=== PATIENT | female | born 1955 | race Caucasian/White ===

== ENCOUNTER → 2023-04-20 11:28 | Outpatient (CLI) | payer OTHER, SELFPAY ==
--- NOTE | 2023-04-20 11:34 | DI.CT.S_ITS ---
PROCEDURE: CT LUMBAR SPINE WO CON INDICATIONS: LUMBAR STENOSIS TECHNIQUE: Noncontrast 3 mm thick sections acquired from the T12 level to the sacrum. Sagittal and coronal reformats were constructed. For radiation dose reduction, the following was used: automated exposure control. COMPARISON: [facility] Outside Film, MR, MR LUMBAR SPINE WITHOUT CONTRAST, 02/09/2023, 16:06. FINDINGS: Image quality: Excellent. Bones: There is normal bony alignment. No acute vertebral body compression fractures. No suspicious lytic or blastic bony lesions. No pars defects. There is minimal anterolisthesis of L4 on L5. Diffuse intervertebral disc space loss with vacuum disc phenomenon. Multiple levels of spinal canal and neural foraminal stenosis not significantly changed from recent MRI dated 02/09/2023. This levels detailed below. L1-L2: There is disc bulging and facet arthropathy with central disc protrusion resulting in at least mild spinal canal stenosis. There is at least mild bilateral neural foraminal stenosis. L2-L3: There is diffuse disc bulging along with facet arthropathy and ligamentum flavum hypertrophy resulting in at least moderate spinal canal stenosis as well as moderate bilateral neural foraminal stenosis. L3-L4: There is disc bulging along with facet arthropathy and ligamentum flavum hypertrophy resulting in at least mild spinal canal stenosis. There is at least moderate bilateral neural foraminal stenosis. L4-L5: Anterolisthesis along with disc bulging and facet arthropathy along with ligamentum flavum hypertrophy results in at least moderate spinal canal stenosis and bilateral severe neural foraminal stenosis. L5-S1: Disc bulging and facet arthropathy results in no significant spinal canal stenosis. Mild bilateral neural foraminal stenosis. Soft tissues: No retroperitoneal masses or hematomas. Visualized aorta is normal in caliber. Diffuse vascular calcifications. Moderate stool burden. Left adrenal gland nodule measuring 1.3 centimeters with Hounsfield units measuring -2 most consistent with an adrenal adenoma. IMPRESSION: Multi lumbar lumbar spondylopathy as above with multiple levels of spinal canal and neural foraminal stenosis as detailed. Left adrenal adenoma measuring 1.3 centimeters. Diffuse vascular calcifications. Dictated by: He Juarez D.O. on 04/20/2023 at 17:26 Approved by: He Juarez D.O. on 04/20/2023 at 17:33
== END ==
PROVIDERS: Referring Provider Orthopaedic Surgery Orthopaedic Surgery of the Spine; Visit Provider Orthopaedic Surgery Orthopaedic Surgery of the Spine
DX: M48.062 Spinal stenosis, lumbar region with neurogenic claudication (principal); D35.02 Benign neoplasm of left adrenal gland; M48.8X6 Other specified spondylopathies, lumbar region
CPT/HCPCS: 72131

== ENCOUNTER 2023-06-10 06:25 | Inpatient (IN) | payer OTHER, SELFPAY ==
[2023-06-05 12:49] VITALS: BMI 40.3
[2023-06-10] VITALS (18 sets, daily range): BP systolic 105–177; BP diastolic 50–81; PULSE 68–86; RESP 10–18; TEMP 35.3–37.2; O2SAT 90–100; BMI 41.1
[2023-06-10] MEDS: LACTATED RINGERS 1,000 ML 100 ML IV ×2 (07:15→09:59)
--- NOTE | 2023-06-10 07:39 | PM.PREOP ---
Pre-operative Note COVID-19 Criteria for continued procedure: Expected advancement of disease process, Possibility delay results in more complex future surgery or treatment, Increased loss of function, Continuing or worsening of significant or severe pain, Deterioration of the patient's condition or overall health and Delay expected to result in less-positive ultimate med/surg outcome Interval Note History & Physical reviewed/Exam performed by Physician: Yes Changes to H&P: No
[2023-06-10] MEDS: CEFAZOLIN 2 GM/100 ML PREMIX 100 ML IV ×3 (08:00→22:51)
--- NOTE | 2023-06-10 08:35 | SUR.OPER ---
Prone on spine table, head in foam head support, padded chest and pelvic supports, gel pad at knees, lower legs supported by pillows; nipples, genitalia and toes free of pressure, arms secured on foam padded arm boards at <90 degrees abduction. Tape over blanket at thigh secured to table.
[2023-06-10] MEDS: BUPIVACAINE 0.25% W/ EPI (PF) 10 ML VIAL 30 ML INJ (09:02)
[2023-06-10] MEDS: BUPIVACAINE LIPOSOME 266 MG/20 ML VIAL INJ (09:03)
--- NOTE | 2023-06-10 11:29 | DI.RAD.S_ITS ---
PROCEDURE: XR LUMBAR SPINE 2-3V INDICATIONS: L3-4, L4-5 TLIF ROBOT TECHNIQUE: 2 fluoroscopic intraoperative low resolution spot films of the lower lumbar spine was obtained COMPARISON: None. FINDINGS: Fluoroscopic spot films show posterior ambrocio and screw instrumentation and discectomy at L3-4 and L4-5 as noted in the history IMPRESSION: Fluoroscopic guidance Approved by: Teto Rdemond M.D. on 06/10/2023 at 11:19
--- NOTE | 2023-06-10 11:35 | PM.OP.1 ---
Operative Date/Time/Diagnoses Date of procedure: 06/10/23 Time of procedure: 08:15 Pre-op diagnosis: 1. L3-4, L4-5 spinal stenosis with neurogenic claudication 2. L3-4, L4-5 spondylolisthesis Post-op diagnosis: same Procedure & Clinicians Procedure: 1. L3-4, L4-5 Postero-lateral and posterior interbody fusion 2. L3-4, L4-5 interbody cage placement. 3. L3-4, L4-5 decompressive laminectomy with bilateral facetecomies 4. L3-4, L4-5 Posterior segmental instrumentation 5. [place] of bone marrow from iliac crest 6. Utilization of microsurgical technique and operating microscope 7. Utilization of robotic assisted navigation Same procedure as scheduled: Yes Indications: Patient has been having chronic back pain and worsening lumbar radiculopathy and symptoms of neurogenic claudication. Patient failed multiple conservative management with worsening pain weakness and numbness in her lower extremity. Patient has been having difficulty performing activity of daily living. After discussing risks benefits of treatment options, patient elected proceed with surgery. Surgeon: Aldair Orellana Resident Care Associate: Chrystal Javier Click Yes if Unassisted: No Anesthesia Type: General Operative Notes Closure Type: primary Specimen(s): none sent Prosthetic devices, grafts, tissues, transplants, or devices: Globus CREO MIS screws, Rise cages Applied: catheter Estimated Blood Loss (mL): 100 Blood products transfused: none Procedure in detail: Patient was seen in the preoperative area. Risks and benefits of the surgery was discussed with the patient. Informed consent was obtained from the patient and placed in the chart. Surgical site was marked. Patient was taken to the operative room. General anesthesia was administered. Prophylactic antibiotic was given to the patient less than 30 min before the incision was made. Patient was placed into a prone position on the David table. Patient's back was then prepped and draped in the sterile fashion. Time-out was performed at this time. After patient was prepped and draped, patient's PSIS was palpated and marked bilaterally. Small 1 cm incision was made over the PSIS for placement of the reference probes. Two trocar was placed into the PSIS 1 on each side. The reference probe was attached to the trocar of the reference apparatus. At this time the C-arm imaging was used to confirm AP and lateral of L3, L4-L5 vertebrae and merged the C-arm imaging using the [employer] robotic navigation system with the CT of the lumbar spine. After successful merging was completed and confirmed, skin marker was used to jeronimo out the skin incision using the [employer] robotic arm. Bilateral incision was made at this time. Pre templated trajectory was used and guided using the [employer] robotic navigation system for bilateral L3 L4, L5 pedicle screw placement. This was done by using the robotic arm to guide the high-speed bur to make a cortical entry point. Next a drill was placed also using the robotic arm and guided using the navigation system drilling partially through bilateral L3, L4, L5 pedicles. Next L3, L4, L5 pedicle screws it was pre templated and measured was placed onto the power van driver helper and inserted into the pedicles bilaterally. After all 6 screws were placed C-arm imaging was taken of both AP and lateral to confirm the placement. Excellent placement of the screws were confirmed and a matched precisely with the pre planned screw placement using the navigation system. MARs retractor was inserted using [employer] guidence. Globus MARS retractors was placed inside the incision and docked onto the L3, L4 lamina. Using microsurgical technique and operating microscope, a L3, L4 laminectomy and L3-4, L4-5 facetectomy was performed using a Kerrison rongeur. The laminectomy and facetectomy was performed in order to decompress patient's cauda equina as well as the nerve roots exiting at the L3-4, L4-5 level. Patient was found have severe lateral recess and neural foramen stenosis which was fully decompressed after the laminectomy facetectomy. More than 75% of the facets were removed during the process of decompression rendering L3-4, L4-5 level grossly unstable and required a fusion procedure at the same time. The disc space at L3-4, L4-5 was identified, and a total diskectomy was performed at L3-4, L4-5 level. The endplates were decorticated using a rasp and shaver. The total diskectomy and decortication was performed at L3-4, L4-5 level in order to to accomplish a L3-4, L4-5 fusion. The local bone from the laminectomy and facetectomy was saved for local bone grafting. After the total diskectomy and decortication was completed, Trifecta bone graft material was combined with local bone that was harvested earlier. At this time, a separate skin is incision was made over the iliac crest. A Jamshidi needle was inserted into the iliac crest through a separate skin incision. 5 cc of bone marrow aspiration was obtained through the separate skin incision using a Jamshidi needle from the iliac crest. The bone marrow aspiration was combined with local bone and the Tr[employer]ecta bone grafting material. The bone grafting material was placed into the L3-4, L4-5 interbody space along with expandable cages. One cage each was inserted into the L3-4 L4-5 interbody space along with bone graft material. The cage was expanded to its maximum height using the torque limiting screwdriver. The disc preparation as well as the cage insertion were also performed under navigation guidance. After the cage was placed, AP and lateral C-arm imaging was taken to confirm placement of the cage and excellent position was confirmed. Globus MARS retractor was inserted and docked onto the L3-4, L4-5 posterolateral gutter on the right side. Using the power drill, posterior-lateral decortication was performed at L3-4, L4-5 level until bleeding cortical bone was identified. The remaining bone grafting material was placed into the L3-4, L4-5 posterior lateral gutter he order to accomplish posterolateral fusion at the L3-4, L4-5 level. At this time the tulips were attached to the L3, L4-L5 pedicle screw shanks. After measuring the length of the rods, they were inserted into the tulips of the pedicle screws and locked in place using locking caps and torque limiting screwdriver bilaterally. Total 6 caps and 2 titanium rods was used in order to complete the posterior instrumentation construct. After all the hardware was placed, and confirmed with AP and lateral C-arm imaging, the wound was then irrigated with sterile normal saline and packed with Ray-Rusty gauze for 3 min to accomplish hemostasis. After the gauze was removed the deep fascia was closed with #1 Vicryl suture. The subcutaneous layer was closed with 2-0 Vicryl. The skin was closed with skin sophia. Patient tolerated the procedure well. There were no complications. The Operation could not have been safely performed without compromising the technical result or length of the procedure, without the assistance of a skilled certified surgical first assistant. The certified surgical first assistant was medically necessary for proper positioning, retraction and manipulation of instruments, proper exposure, surgical preparation, and manipulation of tissue. Neuro monitoring system was used to monitor patient's neurologic status throughout entire procedure. There was no disturbance of the neural monitoring signals throughout the case. Complications: none Post-operative Condition: stable Disposition: PACU Plan for aftercare: Admit to inpatient hospital
[2023-06-10] MEDS: OXYCODONE IR 5 MG TABLET PO (12:16)
[2023-06-10] MEDS: LACTATED RINGERS 1,000 ML 125 ML IV ×2 (12:47→22:24)
[2023-06-10] MEDS: ACETAMINOPHEN 325 MG TABLET 650 MG PO (13:43)
[2023-06-10] MEDS: hydrOXYzine pamoate 25 MG CAPSULE PO ×2 (13:43→22:50)
--- NOTE | 2023-06-10 14:00 | OT.IPNOTE ---
Attempted to see pt for OT services. Pt is sleepy and nursing suggested to hold for today and follow up tomorrow. Will hold at this time.
[2023-06-10] MEDS: OXYCODONE IR 10 MG TABLET PO ×3 (14:42→22:50)
--- NOTE | 2023-06-10 14:45 | PT-IP ANOTE ---
Received PT orders and completed chart review. Nurse stated pt pain is 7/10. Pt wants to rest and try to get some sleep. Pt was told that PT will be back to check in tomorrow.
[2023-06-10] MEDS: AMLODIPINE 5 MG TABLET PO (16:48)
[2023-06-10] MEDS: FLUTICASONE 120 SPRAY/16 GM SPRAY.SUSP NASAL (20:26)
[2023-06-10] MEDS: HYDROMORPHONE 0.5 MG INJ IV (20:27)
[2023-06-10] MEDS: LOSARTAN 50 MG TABLET PO (20:28)
[2023-06-10] MEDS: SENNOSIDES 8.6 MG TABLET 17.2 MG PO (20:28)
[2023-06-10] MEDS: OXYBUTYNIN 5 MG TABLET PO (20:28)
[2023-06-10] MEDS: FERROUS SULFATE 325 MG TABLET PO (20:29)
[2023-06-10] MEDS: DOCUSATE 100 MG CAPSULE PO (20:29)
[2023-06-10] MEDS: PRAVASTATIN 20 MG TABLET 40 MG PO (20:29)
[2023-06-10] MEDS: GABAPENTIN 300 MG CAPSULE 600 MG PO (20:29)
--- NOTE | 2023-06-10 22:05 | PC.NURSE ---
Pt was and out of bed tonight, took a couple of steps next to bed while this nurse changed her dressing which was saturated with sanguineous drainage and changed the bed linens. Pt tolerated well.
[2023-06-11] VITALS (7 sets, daily range): BP systolic 90–156; BP diastolic 50–64; PULSE 68–84; RESP 16–18; TEMP 36.6–37.4; O2SAT 95–98
[2023-06-11] MEDS: HYDROMORPHONE 0.5 MG INJ IV (00:47)
[2023-06-11] MEDS: OXYCODONE IR 10 MG TABLET PO ×3 (02:07→08:35)
[2023-06-11] MEDS: PANTOPRAZOLE DR 20 MG TABLET PO (05:05)
[2023-06-11] MEDS: hydrOXYzine pamoate 25 MG CAPSULE PO (05:06)
[2023-06-11 05:34] LABS: Hematocrit 32.9 % (36-46); Hemoglobin 11.2 g/dL (12.0-16.0)
[2023-06-11] MEDS: LACTATED RINGERS 1,000 ML 125 ML IV ×2 (06:33→22:30)
[2023-06-11] MEDS: DOCUSATE 100 MG CAPSULE PO ×2 (08:35→20:59)
[2023-06-11] MEDS: LOSARTAN 50 MG TABLET PO ×2 (08:35→20:59)
[2023-06-11] MEDS: OXYBUTYNIN 5 MG TABLET PO ×2 (08:35→20:59)
[2023-06-11] MEDS: FERROUS SULFATE 325 MG TABLET PO ×2 (08:35→20:59)
--- NOTE | 2023-06-11 08:36 | P.DS_ITS ---
History of Present Illness History of Present Illness Date Patient Seen: 06/11/23 Time Patient Seen: 08:36 Chief complaint: Back pain Narrative: Back pain is moderate. Denies fever or chills. Denies nausea or vomiting. Discharge Providers Provider Date of admission: 06/10/23 06:25 Discharge Date: 06/11/23 Primary care physician: Doctor Jenae MD Consults: 06/10/23 12:30 Consult to Occupational Therapy Evaluate & Treat Comment: Physician Instructions: Evaluate and treat Consult to Physical Therapy Evaluate & Treat Comment: Physician Instructions: Evaluate and Treat Discharge provider: Lefty Louis PA-C Summary Hospital Course Discharge Diagnosis: 1. L3-4, L4-5 spinal stenosis with neurogenic claudication 2. L3-4, L4-5 spondylolisthesis Hospital Course: 1. L3-4, L4-5 Postero-lateral and posterior interbody fusion 2. L3-4, L4-5 interbody cage placement. 3. L3-4, L4-5 decompressive laminectomy with bilateral facetecomies 4. L3-4, L4-5 Posterior segmental instrumentation 5. [place] of bone marrow from iliac crest 6. Utilization of microsurgical technique and operating microscope 7. Utilization of robotic assisted navigation Same procedure as scheduled: Yes Indications: ?Patient has been having chronic back pain and worsening lumbar radiculopathy and symptoms of neurogenic claudication. Patient failed multiple conservative management with worsening pain weakness and numbness in her lower extremity.? Patient has been having difficulty performing activity of daily living.? After discussing risks benefits of treatment options, patient elected proceed with surgery. Surgeon: Aldair Orellana Stand Up Comedian: Chrystal Javier Click Yes if Unassisted: No Anesthesia Type: General Operative Notes Closure Type: primary Specimen(s): none sent Prosthetic devices, grafts, tissues, transplants, or devices: Globus CREO MIS screws, Rise cages Applied: catheter Estimated Blood Loss (mL): 100 Blood products transfused: none Patient admitted to the hospital for the above-mentioned procedure. Patient consented to the same. Patient taken operating room on June 10, 2023. Patient back in her room recovering well as in stable condition. Patient will mobilize with physical therapy this morning. Limit bending, twisting, lifting. Patient will discharge home today after physical therapy is safe for home environment. Status at Discharge Cognitive/behavioral status at discharge: oriented Functional status at discharge: uses cane/walker Overall status at discharge: patient is progressing back to baseline Exam Vital Signs (past 8 hours): - 06/11/23 04:04 Temperature 99.4 F Pulse Rate 70 Respiratory Rate 18 Blood Pressure 122/53 L Pulse Oximetry 97 Oxygen Flow Rate 2 Fraction of Inspired Oxygen 28 SaO2/FiO2 Ratio 357 Oxygen Delivery Method Nasal Cannula Oxygen Flow Rate 2 Narrative Exam Narrative: 67-year-old female resting comfortably in bed in no apparent distress. Motor functions intact bilateral lower extremities. Sensation grossly intact to light touch bilateral lower extremities. Const General: cooperative and comfortable Nutritional Appearance: average body habitus Resp Effort & Inspection: normal respiratory effort and able to speak in complete sentences Objective Labs 06/11/23 04:45 Labs: Laboratory Results - last 24 hr 06/11/23 04:45 Hgb 11.2 L Hct 32.9 L PFSH Medical History Acid reflux Easy bruisability HLD (hyperlipidemia) HTN (hypertension) Kidney stones Numbness and tingling of both legs ERICA (obstructive sleep apnea) Seasonal allergies Wrist fracture, left (09/2022) Surgical History H/O abdominal surgery (02/2023) Hx of fusion of cervical spine (10/2010) Social History household members: spouse Smoking Status: Former smoker alcohol intake: never Discharge Assessment & Plan Assessment and Plan Assessment: Patient progressing as expected status post L3-L4, L4-L5 fusion Plan of Treatment: Mobilize with physical therapy, limit bending, twisting, lifting Multimodal pain management Discharge home today after physical therapy if safe for home environment. Discharge Plan Discharge Plan Patient Disposition: Home Discharge orders & Medications Prescriptions: New acetaminophen 325 mg Tablet 650 mg PO Q6H PRN (Reason: Fever/Mild Pain (1-3)) Qty: 60 0RF docusate sodium 100 mg Capsule 100 mg PO BID Qty: 10 0RF oxycodone 5 mg tablet 5 mg PO Q4H PRN (Reason: pain) Qty: 60 0RF Continued losartan 50 mg Tablet 50 mg PO BID pravastatin 40 mg Tablet 40 mg PO BEDTIME amlodipine 5 mg Tablet 5 mg PO QPM ferrous sulfate 325 mg (65 mg iron) Tablet 325 mg PO BID gabapentin 300 mg Capsule 600 mg PO BEDTIME oxybutynin chloride 5 mg Tablet 5 mg PO BID fluticasone propionate 50 mcg/actuation [place],Suspension 2 spray INTRANASAL BID Rx Instructions: administer into each nostril omeprazole 20 mg Capsule,Delayed Release(Dr/Ec) 20 mg PO DAILY Discontinued acetaminophen [Tylenol Arthritis] 650 mg Tablet Extended Release 1,300 mg PO Q12H ibuprofen 200 mg Tablet 400 mg PO Q6H PRN (Reason: pain) Follow up/Referrals: Aldair Orellana MD [Physician] - As previously scheduled (Follow up with Dr Orellana on 06/20/2023 @ 1:00 pm at [facility] in [place].) Diet/Activity/Treatments Diet: Diet as Tolerated Activity: No deep bending or twisting at the waist. No lifting more than 10 pounds. Cold/Heat Therapy: Heating pad to low back as needed for pain. Skin/Wound/Dressing Care Report to your healthcare provider any signs of infection, such as:: chills, fever, night sweats, unusual drainage and unusual redness Dressing: May shower. Keep dressing as dry as possible. If dressing becomes wet or dirty, may remove and replace with clean, dry gauze. No bathing or otherwise soaking incisions. Do not apply any creams, lotions, or ointments to incisions. Visit Report/Discharge Packet Instructions: DI for Prescription Opioid Use, DI for Transforaminal Lumbar Interbody Fusion Stand Alone Forms: Patient Portal/API, Stroke Signs & Symptoms, Surgery Discharge Discharge Data Primary Care Provider: Miscellaneous,Doctor Quality VTE Deep Vein Thrombosis/Pulmonary Embolism Present on Admission: No
[2023-06-11] MEDS: FLUTICASONE 120 SPRAY/16 GM SPRAY.SUSP NASAL ×2 (08:38→20:59)
--- NOTE | 2023-06-11 09:30 | PT.IIE ---
Current Diagnoses Spondylolisthesis, lumbar region (06/10/23) Spinal stenosis, lumbar region with neurogenic claudication (06/10/23) Surgery Performed Operation Date: 06/10/23 07:45 Actual Procedures p L3-4, L4-5 TLIF w. posterior instrumentation -Robot - Aldair Orellana MD Surgical History (Last Reviewed 06/11/23 @ 08:39 by Lefty Louis PA-C) H/O abdominal surgery (02/2023) Hx of fusion of cervical spine (10/2010) Medical History (Last Reviewed 06/11/23 @ 08:39 by Lefty Louis PA-C) Acid reflux Easy bruisability HLD (hyperlipidemia) HTN (hypertension) Kidney stones Numbness and tingling of both legs ERICA (obstructive sleep apnea) Seasonal allergies Wrist fracture, left (09/2022) Physical Therapy Inpatient Evaluation/Re-Eval M1 PT/OT-IP Prior Functional Status Start: 06/10/23 13:10 Freq: NEEDED Status: Active Protocol: Document 06/11/23 11:32 CGR (Rec: 06/11/23 11:42 CGR [id number]) Medical Review Prior Functional Status Medical History Reviewed Yes Communication Pt is an effective verbal communicator. Mobility and Gait Pt was Ind at baseline Activities of Daily Living and IADL's Pt was IND in at baseline Social History Household Members spouse Living Arrangements Mobile home Number of Floors (Floors) One Floor Number of Stairs To Enter/Railing? 2 steps to enter without handrail Home Environment Standard Height Toilet,Walk in Shower Home Equipment Hand Held Shower Additional Social History Comment Pt's plans to take 5 days off of work to assist. M2 PT-IP Current Condition Start: 06/10/23 13:10 Freq: NEEDED Status: Active Protocol: Document 06/11/23 09:30 AB (Rec: 06/11/23 13:16 AB [id number]) Physical Therapy Current Condition Current Condition Evaluation Date 06/11/23 Treatment Diagnosis s/p L3-4, L4-5 TLIF; difficulty in walking Onset Date 06/10/23 M3 PT-IP Subjective Start: 06/10/23 13:10 Freq: NEEDED Status: Active Protocol: Document 06/11/23 09:30 AB (Rec: 06/11/23 13:16 AB [id number]) Subjective Physical Therapy Visit Type Type Initial Evaluation Visit Start Time 09:30 Visit Stop Time 11:30 Total Visit Minutes 55 Notes pt seen for split visits: 930am to 938 and 1043 am to 1130 am. Number of CABLE PULLER Visits 0 Physical Therapy Visit Comments Patient Comments agreeable to do PT Therapy Pain Assessment Pain When Pain Assessed At Rest Pain Present Pain Present Pain Reported Location Lower Back Intensity 6 Scale Used Numeric (0 - 10) Pain Management Techniques Apply Cold,Distraction, Modification of Treatment,Re- positioning,Timing of Activity with Medications M4 PT-IP Mobility and Gait Start: 06/10/23 13:10 Freq: NEEDED Status: Active Protocol: Document 06/11/23 09:30 AB (Rec: 06/11/23 13:16 AB [id number]) PT-Bed Mobility Assessment Rolling Level of Assist Maximal Assistance Supine to Sit Supine to Sit Moderate Assistance,1 Person Assistance PT-Transfer Assessment Sit to and From Stand Sit to and from Stand Moderate Assistance,Maximum Assistance,1 Person Assistance ,Use of Upper Extremities Equipment Transfer Assistive Device Gait Belt,Front Wheeled Walker Orthotic/Prosthetic Devices or Brace: No Transfers Transfer Destination Chair Transfer Technique Stand Step Pivot Transfer Ability Level of Assist Maximum Assistance,1 Person Assistance,Use of Upper Extremities Comments Mobility Comments pt in bed and spouse in room. educated pt on back precautions and log roll bed mobility. pt is drowsy and with slight confusion but able to answer questions but requires repetitions and max cues with all tasks. pt completed log roll supine to sit mod A and max cues. pt is impulsive. BP sitting on EOB: 104/54. c/o lightheadedness. nurse came in to change incision dressing . Chekced BP again prior to standin/52. pt completed sit to stand mod to max A and max cues. pt with requiring max A for standing balance with increase L knee flexion during standing and pt with difficulty following directions. c/o lightheadedness. instructed pt to sit back down and required max A for controlled descent. BP checked again. 108/55. educated pt on sit to stand and how to use FWW for steadiness in standing. completed sit to stand max A and step transfer to chair using FWW max A and cues. continues to require max A for controlled descent. pt continues to be impulsive. completed sit to stand from the chair mod A. increase posterior trunk lean with initial standing using FWW and cue to use FWW for support and increase midline awareness . pt ambulated ~ 5 ft using FWW max A. presents with shuffling gait and heavy UE use on FWW. pt sat back on the chair. positioned pt on the chair. call light and table placed within reach. Gait Assessment Gait Gait Assistance Required: Maximum Assistance,1 Person Assist Distance (Feet) 5 Assistive Devices Assistive Device Gait Belt,Front Wheeled Walker Orthotic/Prosthetic Devices or Brace: No Gait Deviations General Gait Pattern Antalgic,Ataxic,Decreased Feet Clearance,Step-to Gait Factors Limiting Gait Function Factors Limiting Gait Function Decreased Activity Tolerance, Decreased Sensation,Decreased Strength,Difficulty Following Directions,Limited Range of Motion,Pain,Poor Balance,Poor Safety Awareness PT-Balance Assessment Sitting Balance and Reactions Static Sitting Balance Ability Good Dynamic Sitting Balance Ability Fair Standing Balance and Reactions Static Standing Balance Ability Poor Dynamic Standing Balance Ability Poor Device Used FWW M5 PT-IP Objective Assessments Start: 06/10/23 13:10 Freq: NEEDED Status: Active Protocol: Document 06/11/23 09:30 AB (Rec: 06/11/23 13:16 [id number]) Orientation Orientation/Cognition Level of Alertness Confusional State Orientation Name,Place,Situation Safety Awareness Decreased Safety Awareness Memory Description Short Term Impaired Gross Range of Motion Lower Extremity ROM Assessment Within Functional Limits Strength Lower Extremity Strength Hip 3+/5 Knee 4-/5 Sensation Assessment Sensation Gross Sensation Right UE Impaired Sensation Description Numbness Comments Sensation Comments c/o slight numbness on R hand Muscle Tone Muscle Tone WNL Yes M6 PT-IP Treatment Start: 06/10/23 13:10 Freq: NEEDED Status: Active Protocol: Document 06/11/23 09:30 AB (Rec: 06/11/23 13:16 AB [id number]) Physical Therapy Treatment Education Education Provided Precautions,Weight Bearing Status,Post-Op Packet,Safety M7 PT-IP Assessment and Plan Start: 06/10/23 13:10 Freq: NEEDED Status: Active Protocol: Document 06/11/23 09:30 AB (Rec: 06/11/23 13:16 AB [id number]) PT Summary Assessment and Plan Potential Rehabilitation Potential Fair Status of Condition at Evaluation Evolving Summary Impairments Pain,ROM,Strength,Balance, Coordination,Sensation,Tone, Cognition,Bed Mobility, Transfers,Gait,Activity Tolerance Assessment Summary pt s/p L3-4, L4-5 TLIF POD 1. pt requiring mod to max A with mobility using FWW and only able to ambulate ~ 5ft using FWW with unsteady shuffling gait. pt is impulsive and with slight confusion and is drowsy affecting safety awarenss and following directions. pt plans to go home with spouse to assist but spouse works and will only be with pt for the first ~ 5 days. pt has 2 steps without rails to enter the house and at this time is not ready to do stair climbing . d/c plan depending on progress: SNF vs home with 24/ 7 and homehealth services. will continue to assess progress. pt is not ready to d/c home as of this morning. Goals Bed Mobility Goal Minimal Assistance Transfer Goal Minimal Assistance,Front Wheeled Walker Gait Goal Minimal Assistance,Front Wheel Walker Gait Distance 50 Other Goals improve bed mobility SBA, transfers SBA using FWW and ambulation using FWW SBA 150 ft up/down 2 steps using walking stick/VETERINARY MEDICAL OFFICER CGA Days to Meet Goals 10 Frequency of Treatment Frequency Of Treatment Twice a Day Treatment Plan Physical Therapy Treatment Plan Bed Mobility Training,Transfer Training,Gait Training, Therapeutic Exercise,Balance Retraining,Post Op Education, Discharge Planning,Hot or Cold Pack,Neuromuscular Re-ed, Coordination Retraining,Manual Therapy Precautions Lumbar Precautions Log Roll,No Twisting,Limit Bending,Lifting Restriction of 10 lbs,Gait Belt above Incisional Area Recommendations To Nursing Amount of Assist Needed 2 Person Assist Discharge Recommendations PT Discharge Recommendations Home with 24/7 Assist Available,Home Health,SNF Rehab,Home vs SNF Equipment Needed for Home Before FWW Discharge Transportation Needs at Discharge Private Vehicle,Wheelchair/ Cabulance
--- NOTE | 2023-06-11 11:25 | OT.IP.EVAL ---
Current Diagnoses Spondylolisthesis, lumbar region (06/10/23) Spinal stenosis, lumbar region with neurogenic claudication (06/10/23) Surgery Performed Operation Date: 06/10/23 07:45 Actual Procedures p L3-4, L4-5 TLIF w. posterior instrumentation -Robot - Aldair Orellana MD Past Medical History (Last Reviewed 06/11/23 @ 08:39 by Lefty Louis PA-C) Acid reflux Easy bruisability HLD (hyperlipidemia) HTN (hypertension) Kidney stones Numbness and tingling of both legs ERICA (obstructive sleep apnea) Seasonal allergies Wrist fracture, left (09/2022) Surgical History (Last Reviewed 06/11/23 @ 08:39 by Lefty Louis PA-C) H/O abdominal surgery (02/2023) Hx of fusion of cervical spine (10/2010) Occupational Therapy Inpatient Evaluation/Re-Eval M1 PT/OT-IP Prior Functional Status Start: 06/10/23 13:10 Freq: NEEDED Status: Active Protocol: Document 06/11/23 11:32 CGR (Rec: 06/11/23 11:42 CGR [id number]) Medical Review Prior Functional Status Medical History Reviewed Yes Communication Pt is an effective verbal communicator. Mobility and Gait Pt was Ind at baseline Activities of Daily Living and IADL's Pt was IND in at baseline Social History Household Members spouse Living Arrangements Mobile home Number of Floors (Floors) One Floor Number of Stairs To Enter/Railing? 2 steps to enter without handrail Home Environment Standard Height Toilet,Walk in Shower Home Equipment Hand Held Shower Additional Social History Comment Pt's plans to take 5 days off of work to assist. M2 OT-IP Current Condition Start: 06/11/23 11:31 Freq: Status: Active Protocol: Document 06/11/23 11:32 CGR (Rec: 06/11/23 11:42 CGR [id number]) Occupational Therapy Current Condition Current Condition Evaluation Date 06/11/23 Treatment Diagnosis L3-L4 and L4-L5 TLIF Diagnosis Onset Date 06/10/23 Post Operative Precautions Lumbar Precautions Log Roll,No Twisting,Limit Bending,Lifting Restriction of 10 lbs,Gait Belt above Incisional Area M3 OT- IP Subjective and Pain Start: 06/11/23 11:31 Freq: Status: Active Protocol: Document 06/11/23 11:32 CGR (Rec: 06/11/23 11:42 CGR [id number]) OT- Subjective Occupational Therapy Visit Type Type Initial Evaluation Visit Start Time 10:45 Visit Stop Time 11:25 Total Visit Minutes 40 Notes Partial co-treat with P.T. OT Pain Assessment Pain When Pain Assessed At Rest Pain Present Pain Present Pain Reported Location Lower Back Intensity 5 Scale Used Numeric (0 - 10) Management Techniques Modification of Treatment,Re- positioning M4 OT- IP ADL's Start: 06/11/23 11:31 Freq: Status: Active Protocol: Document 06/11/23 11:32 CGR (Rec: 06/11/23 11:42 CGR [id number]) OT [id number] Comments OT Self-Feeding Comments not meal time OT ADL-Grooming Comments OT Grooming Comments pt declined, states she already performed this AM OT ADL-Oral Care Comments Oral Care Comments pt declined, states she already performed this AM OT ADL-Dressing General Eval Lower Body Dressing Ability Total Assistance Areas Needing Assistance Socks OT ADL-Toileting Comments OT Toileting Comments not performed OT ADL-Bathing Comments OT Bathing Comments not performed M5 OT- IP IADL's Start: 06/11/23 11:31 Freq: Status: Active Protocol: Document 06/11/23 11:32 CGR (Rec: 06/11/23 11:42 CGR [id number]) OT-Instrumental Activities of Daily Living Deficits IADL Deficits Identified Deficits Home Safety Awareness Awareness of Need for Assistance at Home Decreased Awareness Ability to Problem Solve Emergency Unable to Problem Solve Situations Medication Management Medication Management Caregiver Administers Money Management Money Management Caregiver Provides Assistance Meal Preparation Meal Preparation Caregiver Provides Assist Coal Hiker Coal Hiker Caregiver Provides Assist M6 OT- IP Functional Cognition Start: 06/11/23 11:31 Freq: Status: Active Protocol: Document 06/11/23 11:32 CGR (Rec: 06/11/23 11:42 CGR [id number]) Cognitive Factors Limiting Selfcare Function Cognitive Ability Level of Alertness Alert,Drowsy Patient Orientation Name,Age,Birthday,Month,Date, Year,Day of Week,Place, Situation Attention Span Ability Unable to Focus,Unable to Sustain Attention Ability to Follow Commands Able to Follow One Step Commands with Increased Time, Able to Follow One Step Commands with Repetition Cognitive Comments Cognitive Assessment Comments Pt appears lethargic throughout session. BP 104/52 upon sitting up and maintained within 5 points throughout session. Pt is unable to consistently follow commands and appears sleepy/highly medicated. OT- Vision and Hearing OT- Hearing Assessment OT- Hearing Assessment WFL OT- Vision Assessment Visual Acuity Glasses All The Time Visual Attentiveness WFL Occular Pursuits WFL Visual Convergence WFL M7 OT- IP Mobility and Balance Start: 06/11/23 11:31 Freq: Status: Active Protocol: Document 06/11/23 11:32 CGR (Rec: 06/11/23 11:42 CGR [id number]) OT- Bed Mobility Assessment Rolling Type of Rolling Log Rolling,Roll to Left Level of Assistance Moderate Assistance Supine to Sit Supine to Sit Assist Moderate Assistance Scooting Scooting to Edge of Bed Standby Assistance OT-Transfer Assessment Sit to and From Stand Sit to and from Stand Moderate Assistance Transfers Transfer Ability Moderate Assistance Technique Transfer Destination Bed,Chair Transfer Technique Stand Step Pivot Devices Transfer Assistive Devices Gait Belt,Front Wheeled Walker Comments Mobility Comments Pt states dizziness upon sitting and again upon standing. BP 104/52 in sitting and stayed within 5 points with activity. OT- Balance Assessment Sitting Balance and Reactions Static Sitting Balance Ability Good Dynamic Sitting Balance Ability Good M8 OT- IP Objective Assessments Start: 06/11/23 11:31 Freq: Status: Active Protocol: Document 06/11/23 11:32 CGR (Rec: 06/11/23 11:42 CGR [id number]) OT Gross Range of Motion Upper Extremity Range of Motion Assessment Within Functional Limits OT Strength Upper Extremity Strength Assessment Within Functional Limits Comments Strength Comments R UE grossly 4/5, LUE 4-/5. Pt state recent hx of injury to the LUE OT- Coordination Assessment Upper Extremity Finger to Nose Test Within Functional Limits Finger Tapping Test Within Functional Limits OT-Muscle Tone Assessment Muscle Tone WNL Yes OT Sensation Assessment Edema Edema Absent M9 OT- IP Assessment and Plan Start: 06/11/23 11:31 Freq: Status: Active Protocol: Document 06/11/23 11:32 CGR (Rec: 06/11/23 11:42 CGR [id number]) OT Summary Assessment and Plan Potential Rehabilitation Potential Good Analytic Complexity at Evaluation Moderate Summary OT Impairments Pain,Strength,Balance, Functional Cognition, Functional Mobility,Grooming, Dressing,Toileting,Bathing, Toilet Transfers,Shower Transfers,Activity Tolerance Progress Towards Goals Slow Progress due to Pain,Slow Progress due to Activity Tolerance Assessment Summary Pt presents as a moderate complexity evaluation s/p admit for L3-L4 and L4-L5 TLIF . Pt appears sleepy and was limited in her mobility and ability to learn today. Pt will benefit from continued therapy services. If discharged today recommend SNF . Pt is likely to progress to a safe discharge home in 1-2 days. Goals Grooming Goal Independent Dressing Goal Independent Toileting Goal Independent Bathing Goal Independent Toilet Transfer Goal Independent Shower Transfer Goal Independent Patient/Caregiver Education Goal Demonstrate Post-Op Precautions Days to Meet Goals 5 Frequency of Treatment Frequency Of Treatment Once a Day Treatment Plan OT Treatment Plan ADL Training,Functional Cognition Training,Functional Mobility,Patient/Family Education,Discharge Planning Other Treatment Recommendations and Next LB ADLs, ADLs standing Treatment Focus Discharge Recommendations OT Discharge Recommendations Home vs SNF Home Equipment Needs 2ww, LB dressing equipment Transportation Needs at Discharge Private Vehicle
--- NOTE | 2023-06-11 13:50 | CM.DANOTE ---
Patient is a 67 yo female who was admitted on 06/10/23 for TLIF with Robot. Pt has [facility] for insurance and her PCP is not listed. EMR was reviewed. Per Ortho MD, pt tolerated procedure well and to work with PT/OT today to determine if safe for discharge to home today. Per PT/OT, pt with likely post surg anesthesia/pain med issues that limited her ability this morning to work or follow directives with therapy today and not currently safe for d/c home today and recommend SNF vs HH pending progress. PT to attempt again later this afternoon. 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 Pt states she is hopeful to be back to work within a few weeks of surgery. Spouse confirms he is available to assist at d/c. Pt confirms she has a hx of cervical surg and ended up losing feeling in both arms post surg and went to SNF in [place], [facility] for a month waiting for her feeling in her arms to return. Pt denies any hx of HH. Pt is hopeful for d/c to home with spouse assist and would like FWW issued for d/c to home at discharge but states if SNF needed she would be willing to consider. Plan: SW to follow closely for further PT/OT to determine SNF vs home with spouse assist and possibly HH. Pt already more alert and oriented and able to participate in goal directed discussion so anticipated will make good progress with PT. TISHA Gutierres Discharge Planning/Care Management CM Discharge Assessment Start: 06/11/23 13:24 Freq: Status: Active Protocol: Document 06/11/23 13:24 BF (Rec: 06/11/23 13:49 BF [id number]) Discharge Planning Assessment Assigned Case Loader Operator TISHA Nguyen DPOA/Assigned Designee Name spouse Sammy Contact Information [phone] Advance Directives? No Advance Directives on File No History Provided By Patient,Significant Other, Medical Record Has Patient been admitted in last 30 No days? Prior Living Arrangements Mobile home Household Members spouse Type of transporation used prior to Drives own vehicle admit Independent with ADL's Yes Is patient alert and oriented? Yes Caregiver for Another No DME Already Rented / Owned FWW / Walker Patient/Family Preference Home with Home Health Comment SNF vs HH pending progress with PT Barriers to Discharge No Discharge Plan Home with Home Health Transportation Arrangement spouse bedside Additional Comment Pending PT recommendations at d/c SNF vs HH Whiteboard Updated in Patient Room with Yes name and ext. # of Case Loader Operator Review Status In Process Please Provide Date Initial DC 06/11/23 Assessment Was Performed Next Review Type Continued Stay Review Pre-Anesthesia Assessment Start: 06/05/23 12:49 Freq: Status: Active Protocol: Document 06/05/23 12:49 TC (Rec: 06/05/23 13:56 TC [id number]) Pre-Anesthesia Assessment Preferred Name Milly Patient Information Reviewed Via Phone Assessment Assessment Completed With Patient Diagnostic Results BMP/CMP,CBC,EKG Comment outside labs/EKG 05/10 scanned Primary Care Provider Leanne Walker Seen Specialist in Last 12 Months Yes Specialist Seen Emergency,Oncologist, Opthamologist/El Teacher, Orthopedist Primary Language [place] Senior Software Engineer Analytics Required No Height 162.56 cm Weight 106.594 kg Body Mass Index (BMI) 40.3 Hearing Ability Normal Visual Assist Glasses Dentition Type Teeth, Missing,Full- Upper Hx Anesthesia Reactions No Additional comment untreated ERICA Hx Family Anesthesia Reaction No Hx Malignant Hyperthermia No Hx Blood Transfusions No Anesthesia Review Requested No Mathematical Scientist No alcohol intake never Smoking Status Former smoker how long ago did patient quit smoking quit 2000 Pain Present Pain Reported Musculoskeletal Symptoms Abnormal Gait,Back Pain,Muscle Cramps,Muscle Spasms,Muscle Weakness,Numbness,Radiating Pain into Limb,Tingling History of Falling (Recent or History of Yes ) Patient is completely paralyzed or No completely immobile Ambulatory Aid None/bed rest/nurse assist Comment patient advised to have walker after surgery Is patient on oxygen? No Does patient have PORTER/SOB No Hx Sleep Apnea Yes CPAP/BIPAP use prescribed not used Currently Taking a Beta Jason No Can You Climb a Flight of Stairs Without No SOB Hx Chest Pain No Hx SOB No Hx Syncope or Dizziness Yes Anti-Coagulant Therapy No Has a Veterinary Hospital Attendant No Cardiac Testing No Hx Pacemaker/ICD No Pacemaker Rep Required? No Cardiac Clearance Received Not Applicable Diet Type At Home Low Carb Dysphagia No Gastrointestinal Symptoms Chewing Difficulty, Constipation,Reflux Bladder Pattern Nocturia,Urgency Urinary Catheter Present No Hx Urinary Self Catheterization No Diabetes No HgbA1C 5.8 Hx Drug Resistant Organism No Presence of External or Internal Medical Yes: cervical hardware Devices Have you had any close contact with No someone diagnosed with COVID-19? Are you experiencing any of these No symptoms symptoms? Evaluation/Screening for possible COVID- Yes 19 infection completed? Received a COVID vaccine? No Marital Status Lives With spouse Current Living Arrangements Mobile home Number of Floors (Floors) One Floor Number of Stairs To Enter/Railing? 2 Support System Family Does the Patient Have Assistance After Yes Surgery Patient Discharge Plan Description Return Home Feels Safe in Current Environment Yes Been Physically Hurt or Threatened By a No Person in Current Environment If Yes, Provider Notified No Do you have thoughts of harming yourself None or others? Are you currently considering suicide? Yes Do you have a plan to hurt yourself or No Plan others? Do You Have Any Spiritual Beliefs That No May Affect Your HC Choices? Do You Have Any Cultural Practices That No May Affect Your HC Choices? Comment druze Who Can We Speak to About Patient's Care family and friends Identifying Code for Release of Patient declined Information Health Care Proxy/Next of Kin Sammy Cutler (spouse) Health Care Proxy Emergency Contact Name Sammy Cutler (spouse) Emergency Contact Advance Directives? No Power of Store Sales Manager No PAC Instructions Do not shave/clip surgical site,Durable medical equipment ,Medications to take/avoid, Nasal antibiotic,No ETOH/ petroleum product on skin DOS, NPO,Post-op transportation,Pre -surgical wash,Sensory aids, Sturdy shoes/comfortable clothes,Do not bring valuables and remove jewelry
[2023-06-11] MEDS: ACETAMINOPHEN 325 MG TABLET 650 MG PO ×2 (14:43→20:56)
--- NOTE | 2023-06-11 14:50 | PT.IPTN ---
Current Diagnoses Spondylolisthesis, lumbar region (06/10/23) Spinal stenosis, lumbar region with neurogenic claudication (06/10/23) Surgery Performed Operation Date: 06/10/23 07:45 Actual Procedures p L3-4, L4-5 TLIF w. posterior instrumentation -Robot - Aldair Orellana MD Physical Therapy Treatment Note M2 PT-IP Current Condition Start: 06/10/23 13:10 Freq: NEEDED Status: Active Protocol: Document 06/11/23 09:30 AB (Rec: 06/11/23 13:16 AB [id number]) Physical Therapy Current Condition Current Condition Evaluation Date 06/11/23 Treatment Diagnosis s/p L3-4, L4-5 TLIF; difficulty in walking Onset Date 06/10/23 M3 PT-IP Subjective Start: 06/10/23 13:10 Freq: NEEDED Status: Active Protocol: Document 06/11/23 15:24 TS (Rec: 06/11/23 15:53 TS [id number]) Subjective Physical Therapy Visit Type Type Treatment Note Visit Start Time 14:50 Visit Stop Time 15:22 Total Visit Minutes 32 Number of PANEL BUILDER Visits 1 Physical Therapy Visit Comments Patient Comments Pt reports feeling much better this morning and less loopy , agreeable to PT. Therapy Pain Assessment Pain When Pain Assessed During Mobility Pain Present Pain Present Pain Reported M4 PT-IP Mobility and Gait Start: 06/10/23 13:10 Freq: NEEDED Status: Active Protocol: Document 06/11/23 15:24 TS (Rec: 06/11/23 15:53 TS [id number]) PT-Bed Mobility Assessment Rolling Level of Assist Minimal Assistance Supine to Sit Supine to Sit Moderate Assistance Sit to Supine Sit to Supine Moderate Assistance Scooting Scooting to Edge of Bed Contact Guard Assistance Scooting Up and Down in Bed Standby Assistance PT-Transfer Assessment Sit to and From Stand Sit to and from Stand Minimal Assistance,Moderate Assistance Equipment Transfer Assistive Device Gait Belt,Front Wheeled Walker Orthotic/Prosthetic Devices or Brace: No Comments Mobility Comments Pt performed logroll Evita with cues for sequencing. Supine to sit ModA for uprighting trunk, pt required cues for BUE support and LEs over EOB. Sit to stand Evita with FWW and BUEs on FWW, pt denied any dizziness. She ambulated in room ~25' Evita with FWW and step to gait with flexed posture, required assist with management of IV. Pt requested to use toilet, performed own victoriano-care. Sit to stand from toilet ModA with use of grab bars and FWW. Sit to supine into bed ModA for LEs, pt required cues for coming down onto elbow and twisting hips and shoulder together. Pt was left in bed with call light nearby, all needs met. Gait Assessment Gait Gait Assistance Required: Minimum Assistance,1 Person Assist Distance (Feet) 25 Assistive Devices Assistive Device Gait Belt,Front Wheeled Walker Orthotic/Prosthetic Devices or Brace: No Gait Deviations General Gait Pattern Antalgic,Ataxic,Decreased Feet Clearance,Step-to Gait Factors Limiting Gait Function Factors Limiting Gait Function Decreased Activity Tolerance, Decreased Sensation,Decreased Strength,Difficulty Following Directions,Limited Range of Motion,Pain,Poor Balance,Poor Safety Awareness Comments Gait Comments See mobility comments. PT-Balance Assessment Sitting Balance and Reactions Static Sitting Balance Ability Good Dynamic Sitting Balance Ability Good Standing Balance and Reactions Static Standing Balance Ability Good Dynamic Standing Balance Ability Fair Device Used FWW M5 PT-IP Objective Assessments Start: 06/10/23 13:10 Freq: NEEDED Status: Active Protocol: Document 06/11/23 09:30 AB (Rec: 06/11/23 13:16 AB [id number]) Orientation Orientation/Cognition Level of Alertness Confusional State Orientation Name,Place,Situation Safety Awareness Decreased Safety Awareness Memory Description Short Term Impaired Gross Range of Motion Lower Extremity ROM Assessment Within Functional Limits Strength Lower Extremity Strength Hip 3+/5 Knee 4-/5 Sensation Assessment Sensation Gross Sensation Right UE Impaired Sensation Description Numbness Comments Sensation Comments c/o slight numbness on R hand Muscle Tone Muscle Tone WNL Yes M6 PT-IP Treatment Start: 06/10/23 13:10 Freq: NEEDED Status: Active Protocol: Document 06/11/23 15:24 TS (Rec: 06/11/23 15:53 TS [id number]) Physical Therapy Treatment Education Education Provided Precautions,Weight Bearing Status,Post-Op Packet,Safety M7 PT-IP Assessment and Plan Start: 06/10/23 13:10 Freq: NEEDED Status: Active Protocol: Document 06/11/23 15:24 TS (Rec: 06/11/23 15:53 TS [id number]) PT Summary Assessment and Plan Potential Rehabilitation Potential Fair Summary Impairments Pain,ROM,Strength,Balance, Coordination,Sensation,Tone, Cognition,Bed Mobility, Transfers,Gait,Activity Tolerance Progress Towards Goals Progressing Toward Goals Assessment Summary Pt is progressing well with her mobility this session. She recalled 1/3 precautions prior to mobility(no twisting) . She performed logroll Evita with cues for hips and shoulders rolling together. Supine to sit with ModA for uprighting trunk and cues for LEs over EOB and BUE support. She performed sit to stand Evita from elevated bed and ModA from lower surface of toilet. She progressed her ambulation to ~25' in rooms Evita. Pt is requiring max cues for most mobility and has poor carryover from previous session. PT continues to recommend SNF vs Home 10/06 at this time. Suspect pt will improve enough to go home with 10/06 assist. Pt is feeling much better this afternoon and was not expressing much pain. PT will perform caregiver training tomorrow with spouse in afternoon and pt will need to complete two steps prior to d/c. Goals Bed Mobility Goal Minimal Assistance Transfer Goal Minimal Assistance,Front Wheeled Walker Gait Goal Minimal Assistance,Front Wheel Walker Gait Distance 50 Other Goals improve bed mobility SBA, transfers SBA using FWW and ambulation using FWW SBA 150 ft up/down 2 steps using walking stick/CYBER CRIME INVESTIGATOR CGA Days to Meet Goals 10 Frequency of Treatment Frequency Of Treatment Twice a Day Treatment Plan Physical Therapy Treatment Plan Bed Mobility Training,Transfer Training,Gait Training, Therapeutic Exercise,Balance Retraining,Post Op Education, Discharge Planning,Hot or Cold Pack,Neuromuscular Re-ed, Coordination Retraining,Manual Therapy Precautions Lumbar Precautions Log Roll,No Twisting,Limit Bending,Lifting Restriction of 10 lbs,Gait Belt above Incisional Area Recommendations To Nursing Amount of Assist Needed 1 Person Assist Discharge Recommendations PT Discharge Recommendations Home with 10/06 Assist Available,Home Health,SNF Rehab,Home vs SNF Equipment Needed for Home Before FWW Discharge Transportation Needs at Discharge Private Vehicle,Wheelchair/ Cabulance
[2023-06-11] MEDS: OXYCODONE IR 5 MG TABLET PO ×2 (16:08→21:00)
[2023-06-11] MEDS: AMLODIPINE 5 MG TABLET PO (17:45)
[2023-06-11] MEDS: GABAPENTIN 300 MG CAPSULE 600 MG PO (20:57)
[2023-06-11] MEDS: PRAVASTATIN 20 MG TABLET 40 MG PO (20:57)
[2023-06-11] MEDS: SENNOSIDES 8.6 MG TABLET 17.2 MG PO (20:59)
[2023-06-12 00:10] VITALS: BP 135/56; PULSE 81; RESP 18; TEMP 36.5; O2SAT 95
[2023-06-12] MEDS: OXYCODONE IR 5 MG TABLET PO ×2 (02:50→05:42)
[2023-06-12 04:40] VITALS: BP 157/77; PULSE 88; RESP 18; TEMP 36.9; O2SAT 96
[2023-06-12] MEDS: LACTATED RINGERS 1,000 ML 125 ML IV (05:41)
[2023-06-12] MEDS: PANTOPRAZOLE DR 20 MG TABLET PO (05:41)
--- NOTE | 2023-06-12 07:20 | PM.PNPO.1 ---
Subjective Subjective Date Patient Seen: 06/12/23 Time Patient Seen: 07:20 Interval history: Pt sleeping, arouses easily to voice. Made better progress w/ PT yesterday than she had anticipated; spouse coming for caregiver training today. She would like to go home today if she passes PT. Eating and voiding without difficulty, pain well-controlled with oral medication. Exam Vital Signs (past 8 hours): - 06/12/23 00:10 06/12/23 04:40 Temperature 97.7 F 98.4 F Pulse Rate 81 88 Respiratory Rate 18 18 Blood Pressure 135/56 L 157/77 H Pulse Oximetry 95 96 Oxygen Flow Rate 0 0 Fraction of Inspired Oxygen 28 SaO2/FiO2 Ratio 357 Oxygen Delivery Method Room Air Oxygen Flow Rate 0 Narrative Exam Narrative: 5/5 strength in hip flexors, quadriceps, hamstrings, DF, PF, EHL bilaterally. Sensation to light touch intact in BLE. Calves soft, compressible, nontender and without palpable cords or masses. Dressing changed since surgery; CDI. Objective Labs 06/11/23 04:45 PFSH Medical History Acid reflux Easy bruisability HLD (hyperlipidemia) HTN (hypertension) Kidney stones Numbness and tingling of both legs ERICA (obstructive sleep apnea) Seasonal allergies Wrist fracture, left (09/2022) Surgical History H/O abdominal surgery (02/2023) Hx of fusion of cervical spine (10/2010) Social History household members: spouse Smoking Status: Former smoker alcohol intake: never Assessment & Plan Post-op Assessment and plan (1) S/P lumbar fusion: Assessment and Plan narrative: Discharge today after PT if PT agrees. Postoperative Procedures: Procedures Operation Date: 06/10/23 07:45 Actual Procedure Side Surgeon p L3-4, L4-5 TLIF w. posterior instrumentation -Robot Aldair Orellana MD Quality VTE Deep Vein Thrombosis/Pulmonary Embolism Present on Admission: No
[2023-06-12 08:00] VITALS: BP 143/66; PULSE 80; RESP 17; TEMP 36.4; O2SAT 94
--- NOTE | 2023-06-12 08:51 | OT.IP.TRT ---
Current Diagnoses Spondylolisthesis, lumbar region (06/10/23) Spinal stenosis, lumbar region with neurogenic claudication (06/10/23) Arthrodesis status (06/10/23) Surgery Performed Operation Date: 06/10/23 07:45 Actual Procedures p L3-4, L4-5 TLIF w. posterior instrumentation -Robot - Aldair Orellana MD Occupational Therapy Treatment Note M2 OT-IP Current Condition Start: 06/11/23 11:31 Freq: Status: Active Protocol: Document 06/11/23 11:32 CGR (Rec: 06/11/23 11:42 CGR [id number]) Occupational Therapy Current Condition Current Condition Evaluation Date 06/11/23 Treatment Diagnosis L3-L4 and L4-L5 TLIF Diagnosis Onset Date 06/10/23 Post Operative Precautions Lumbar Precautions Log Roll,No Twisting,Limit Bending,Lifting Restriction of 10 lbs,Gait Belt above Incisional Area M3 OT- IP Subjective and Pain Start: 06/11/23 11:31 Freq: Status: Active Protocol: Document 06/12/23 14:08 CGR (Rec: 06/12/23 14:18 CGR [id number]) OT- Subjective Occupational Therapy Visit Type Type Progress Note Visit Start Time 08:31 Visit Stop Time 08:51 Total Visit Minutes 20 Notes Pt sleeping soundly when OT entered OT Pain Assessment Pain When Pain Assessed At Rest Pain Present Pain Present Pain Reported Location Lower Back Intensity 5 Scale Used Numeric (0 - 10) Management Techniques Apply Cold,Distraction, Modification of Treatment,Re- positioning,Timing of Activity with Medications M4 OT- IP ADL's Start: 06/11/23 11:31 Freq: Status: Active Protocol: Document 06/12/23 14:08 CGR (Rec: 06/12/23 14:18 CGR [id number]) OT PSO-Hccm-Ldhifmg General Evaluation Self-Feeding Ability Independent Comments OT Self-Feeding Comments Pt eating breakfast at the end of session. OT ADL-Grooming General Evaluation Grooming Ability Standby Assistance Comments OT Grooming Comments standing at sink for washing hands. OT ADL-Oral Care Comments Oral Care Comments not performed OT ADL-Dressing General Eval Lower Body Dressing Ability Standby Assistance Areas Needing Assistance Underpants/Brief,Socks Assistive Devices Dressing Assistive Devices Mold Bunch Trimmer,Sock Aid Comments OT Dressing Comments Pt demonstrated understanding on LB dressing aides for dressing both socks and underwear. OT ADL-Toileting General Evaluation Toileting Ability Standby Assistance Comments OT Toileting Comments Pt urinated seated on toilet OT ADL-Bathing Comments OT Bathing Comments not performed M5 OT- IP IADL's Start: 06/11/23 11:31 Freq: Status: Active Protocol: Document 06/11/23 11:32 CGR (Rec: 06/11/23 11:42 CGR [id number]) OT-Instrumental Activities of Daily Living Deficits IADL Deficits Identified Deficits Home Safety Awareness Awareness of Need for Assistance at Home Decreased Awareness Ability to Problem Solve Emergency Unable to Problem Solve Situations Medication Management Medication Management Caregiver Administers Money Management Money Management Caregiver Provides Assistance Meal Preparation Meal Preparation Caregiver Provides Assist Shirt Folding Machine Operator Shirt Folding Machine Operator Caregiver Provides Assist M6 OT- IP Functional Cognition Start: 06/11/23 11:31 Freq: Status: Active Protocol: Document 06/11/23 11:32 CGR (Rec: 06/11/23 11:42 CGR [id number]) Cognitive Factors Limiting Selfcare Function Cognitive Ability Level of Alertness Alert,Drowsy Patient Orientation Name,Age,Birthday,Month,Date, Year,Day of Week,Place, Situation Attention Span Ability Unable to Focus,Unable to Sustain Attention Ability to Follow Commands Able to Follow One Step Commands with Increased Time, Able to Follow One Step Commands with Repetition Cognitive Comments Cognitive Assessment Comments Pt appears lethargic throughout session. BP 104/52 upon sitting up and maintained within 5 points throughout session. Pt is unable to consistently follow commands and appears sleepy/highly medicated. OT- Vision and Hearing OT- Hearing Assessment OT- Hearing Assessment WFL OT- Vision Assessment Visual Acuity Glasses All The Time Visual Attentiveness WFL Occular Pursuits WFL Visual Convergence WFL M7 OT- IP Mobility and Balance Start: 06/11/23 11:31 Freq: Status: Active Protocol: Document 06/12/23 14:08 CGR (Rec: 06/12/23 14:18 CGR [id number]) OT-Transfer Assessment Sit to and From Stand Sit to and from Stand Contact Guard Assistance Transfers Transfer Ability Contact Guard Assistance Technique Transfer Destination Chair,Toilet Transfer Technique Stand Step Pivot Devices Transfer Assistive Devices Gait Belt,Front Wheeled Walker Comments Mobility Comments mobility from chair into bathroom to toilet then to sink and return to chair. OT- Balance Assessment Sitting Balance and Reactions Static Sitting Balance Ability Good Dynamic Sitting Balance Ability Good Standing Balance and Reactions Static Standing Balance Ability Good Dynamic Standing Balance Ability Fair M8 OT- IP Objective Assessments Start: 06/11/23 11:31 Freq: Status: Active Protocol: Document 06/11/23 11:32 CGR (Rec: 06/11/23 11:42 CGR [id number]) OT Gross Range of Motion Upper Extremity Range of Motion Assessment Within Functional Limits OT Strength Upper Extremity Strength Assessment Within Functional Limits Comments Strength Comments R UE grossly 4/5, LUE 4-/5. Pt state recent hx of injury to the LUE OT- Coordination Assessment Upper Extremity Finger to Nose Test Within Functional Limits Finger Tapping Test Within Functional Limits OT-Muscle Tone Assessment Muscle Tone WNL Yes OT Sensation Assessment Edema Edema Absent M9 OT- IP Assessment and Plan Start: 06/11/23 11:31 Freq: Status: Active Protocol: Document 06/12/23 14:08 CGR (Rec: 06/12/23 14:18 CGR [id number]) OT Summary Assessment and Plan Potential Rehabilitation Potential Good Analytic Complexity at Evaluation Moderate Summary OT Impairments Pain,Strength,Balance, Functional Cognition, Functional Mobility,Grooming, Dressing,Toileting,Bathing, Toilet Transfers,Shower Transfers,Activity Tolerance Progress Towards Goals Slow Progress due to Pain,Slow Progress due to Activity Tolerance Assessment Summary Pt presents as a moderate complexity evaluation s/p admit for L3-L4 and L4-L5 TLIF . Pt is sleeping soundly when OT enters but awakens and ambulates to the sink to wash face to assist with waking up. Pt then requests to go to the toilet for urination and then returned to chair for LB dressing training. Pt appears ready for discharge home. Goals Grooming Goal Independent Dressing Goal Independent Toileting Goal Independent Bathing Goal Independent Toilet Transfer Goal Independent Shower Transfer Goal Independent Patient/Caregiver Education Goal Demonstrate Post-Op Precautions Days to Meet Goals 5 Frequency of Treatment Frequency Of Treatment Once a Day Treatment Plan OT Treatment Plan ADL Training,Functional Cognition Training,Functional Mobility,Patient/Family Education,Discharge Planning Other Treatment Recommendations and Next LB ADLs, ADLs standing Treatment Focus Discharge Recommendations OT Discharge Recommendations Home vs SNF Home Equipment Needs 2ww, LB dressing equipment Transportation Needs at Discharge Private Vehicle
[2023-06-12] MEDS: OXYBUTYNIN 5 MG TABLET PO (09:04)
[2023-06-12] MEDS: DOCUSATE 100 MG CAPSULE PO (09:04)
[2023-06-12] MEDS: FERROUS SULFATE 325 MG TABLET PO (09:04)
[2023-06-12 09:05] VITALS: BP 143/66; PULSE 80
[2023-06-12] MEDS: LOSARTAN 50 MG TABLET PO (09:05)
[2023-06-12] MEDS: polyethylene glycoL 3350 17 GM POWD.PACK PO (09:05)
[2023-06-12] MEDS: ACETAMINOPHEN 325 MG TABLET 650 MG PO (09:05)
[2023-06-12] MEDS: FLUTICASONE 120 SPRAY/16 GM SPRAY.SUSP NASAL (09:06)
--- NOTE | 2023-06-12 09:20 | PT.IPTN ---
Current Diagnoses Spondylolisthesis, lumbar region (06/10/23) Spinal stenosis, lumbar region with neurogenic claudication (06/10/23) Arthrodesis status (06/10/23) Surgery Performed Operation Date: 06/10/23 07:45 Actual Procedures p L3-4, L4-5 TLIF w. posterior instrumentation -Robot - Aldair Orellana MD Physical Therapy Treatment Note M2 PT-IP Current Condition Start: 06/10/23 13:10 Freq: NEEDED Status: Active Protocol: Document 06/11/23 09:30 AB (Rec: 06/11/23 13:16 AB [id number]) Physical Therapy Current Condition Current Condition Evaluation Date 06/11/23 Treatment Diagnosis s/p L3-4, L4-5 TLIF; difficulty in walking Onset Date 06/10/23 M3 PT-IP Subjective Start: 06/10/23 13:10 Freq: NEEDED Status: Active Protocol: Document 06/12/23 09:35 TS (Rec: 06/12/23 09:43 TS [id number]) Subjective Physical Therapy Visit Type Type Treatment Note Visit Start Time 09:20 Visit Stop Time 09:35 Total Visit Minutes 15 Number of SEAT COVERER Visits 2 Physical Therapy Visit Comments Patient Comments Pt reports feeling tired this morning but doing well, agreeable to PT. Therapy Pain Assessment Pain When Pain Assessed During Mobility Pain Present Pain Present Pain Reported M4 PT-IP Mobility and Gait Start: 06/10/23 13:10 Freq: NEEDED Status: Active Protocol: Document 06/12/23 09:35 TS (Rec: 06/12/23 09:43 TS [id number]) PT-Transfer Assessment Sit to and From Stand Sit to and from Stand Minimal Assistance Equipment Transfer Assistive Device Gait Belt,Front Wheeled Walker Orthotic/Prosthetic Devices or Brace: No Comments Mobility Comments Pt found resting in chair, agreeable to PT. Sit to stand Evita from chair, pt is slow to stand with difficulty transitioning hands to FWW, provided cues for BUE support pushing from arms of chair and weight forward. She ambulated ~100' CGA with slow step to gait, pt c/o of R hip pain, has diffiuclty weight bearing on R hip. Stand to sit back into chair CGA with cues provided for reaching for amrs of chair for slow eccentric control. Pt was left in chair with call light nearby, all needs met. Gait Assessment Gait Gait Assistance Required: Contact Guard Assist,1 Person Assist Distance (Feet) 100 Assistive Devices Assistive Device Gait Belt,Front Wheeled Walker Orthotic/Prosthetic Devices or Brace: No Gait Deviations General Gait Pattern Antalgic,Ataxic,Decreased Feet Clearance,Step-to Gait Factors Limiting Gait Function Factors Limiting Gait Function Decreased Activity Tolerance, Decreased Sensation,Decreased Strength,Difficulty Following Directions,Limited Range of Motion,Pain,Poor Balance,Poor Safety Awareness Comments Gait Comments See mobility comments. Stair Climbing Assessment Comments Stair Climbing Comments Will attempt this afternoon. PT-Balance Assessment Sitting Balance and Reactions Static Sitting Balance Ability Good Dynamic Sitting Balance Ability Good Standing Balance and Reactions Static Standing Balance Ability Good Dynamic Standing Balance Ability Fair Device Used FWW M5 PT-IP Objective Assessments Start: 06/10/23 13:10 Freq: NEEDED Status: Active Protocol: Document 06/11/23 09:30 AB (Rec: 06/11/23 13:16 AB [id number]) Orientation Orientation/Cognition Level of Alertness Confusional State Orientation Name,Place,Situation Safety Awareness Decreased Safety Awareness Memory Description Short Term Impaired Gross Range of Motion Lower Extremity ROM Assessment Within Functional Limits Strength Lower Extremity Strength Hip 3+/5 Knee 4-/5 Sensation Assessment Sensation Gross Sensation Right UE Impaired Sensation Description Numbness Comments Sensation Comments c/o slight numbness on R hand Muscle Tone Muscle Tone WNL Yes M6 PT-IP Treatment Start: 06/10/23 13:10 Freq: NEEDED Status: Active Protocol: Document 06/12/23 09:35 TS (Rec: 06/12/23 09:43 TS [id number]) Physical Therapy Treatment Education Education Provided Precautions,Weight Bearing Status,Post-Op Packet,Safety M7 PT-IP Assessment and Plan Start: 06/10/23 13:10 Freq: NEEDED Status: Active Protocol: Document 06/12/23 09:35 TS (Rec: 06/12/23 09:43 TS [id number]) PT Summary Assessment and Plan Potential Rehabilitation Potential Good Summary Impairments Pain,ROM,Strength,Balance, Coordination,Sensation,Tone, Cognition,Bed Mobility, Transfers,Gait,Activity Tolerance Progress Towards Goals Progressing Toward Goals Assessment Summary Pt is progressing well with her mobility. She is Evita for sit to stands from chair due to some retroleaning and difficulty transitioning hands to FWW. She progressed her ambulation to ~100' CGA with a slow step to antalgic gait due to R hip pain. PT is recommending return home with 24/7 assist from spouse and HHPT. Caregiver training will be conducted in afternoon when spouse arrives, suspect she will be able to return home. Goals Bed Mobility Goal Minimal Assistance Transfer Goal Minimal Assistance,Front Wheeled Walker Gait Goal Minimal Assistance,Front Wheel Walker Gait Distance 50 Other Goals improve bed mobility SBA, transfers SBA using FWW and ambulation using FWW SBA 150 ft up/down 2 steps using walking stick/NET APPLICATIONS DEVELOPER CGA Days to Meet Goals 10 Frequency of Treatment Frequency Of Treatment Twice a Day Treatment Plan Physical Therapy Treatment Plan Bed Mobility Training,Transfer Training,Gait Training, Therapeutic Exercise,Balance Retraining,Post Op Education, Discharge Planning,Hot or Cold Pack,Neuromuscular Re-ed, Coordination Retraining,Manual Therapy Precautions Lumbar Precautions Log Roll,No Twisting,Limit Bending,Lifting Restriction of 10 lbs,Gait Belt above Incisional Area Recommendations To Nursing Amount of Assist Needed 1 Person Assist Discharge Recommendations PT Discharge Recommendations Home with 24/7 Assist Available,Home Health Equipment Needed for Home Before FWW Discharge Transportation Needs at Discharge Private Vehicle,Wheelchair/ Cabulance
[2023-06-12 11:34] VITALS: BP 130/52; PULSE 70; RESP 20; TEMP 36.5; O2SAT 94
--- NOTE | 2023-06-12 12:38 | PT.IPTN ---
Current Diagnoses Spondylolisthesis, lumbar region (06/10/23) Spinal stenosis, lumbar region with neurogenic claudication (06/10/23) Arthrodesis status (06/10/23) Surgery Performed Operation Date: 06/10/23 07:45 Actual Procedures p L3-4, L4-5 TLIF w. posterior instrumentation -Robot - Aldair Orellana MD Physical Therapy Treatment Note M2 PT-IP Current Condition Start: 06/10/23 13:10 Freq: NEEDED Status: Discharge Protocol: Document 06/11/23 09:30 AB (Rec: 06/11/23 13:16 AB [id number]) Physical Therapy Current Condition Current Condition Evaluation Date 06/11/23 Treatment Diagnosis s/p L3-4, L4-5 TLIF; difficulty in walking Onset Date 06/10/23 M3 PT-IP Subjective Start: 06/10/23 13:10 Freq: NEEDED Status: Discharge Protocol: Document 06/12/23 13:37 TS (Rec: 06/12/23 13:46 TS [id number]) Subjective Physical Therapy Visit Type Type Treatment Note Visit Start Time 12:38 Visit Stop Time 12:54 Total Visit Minutes 16 Number of LOW VISION THERAPIST Visits 3 Physical Therapy Visit Comments Patient Comments Pt found resting in chair, spouse present in room, agreeable to PT. M4 PT-IP Mobility and Gait Start: 06/10/23 13:10 Freq: NEEDED Status: Discharge Protocol: Document 06/12/23 13:37 TS (Rec: 06/12/23 13:46 TS [id number]) PT-Transfer Assessment Sit to and From Stand Sit to and from Stand Contact Guard Assistance Equipment Transfer Assistive Device Gait Belt,Front Wheeled Walker Orthotic/Prosthetic Devices or Brace: No Comments Mobility Comments Sit to stand from chair CGA, pt is slow to stand and with transitioning hands to FWW. She ambulated ~50'CGA/SBA with FWW to w/c to be taken to stairs. She performed stairs CGA with bilateral handrail assist step to step. Pt was brought back to room in w/c with spouse awaiting for d/c. Gait Assessment Gait Gait Assistance Required: Standby Assistance,Contact Guard Assist,1 Person Assist Distance (Feet) 50 Assistive Devices Assistive Device Gait Belt,Front Wheeled Walker Orthotic/Prosthetic Devices or Brace: No Gait Deviations General Gait Pattern Antalgic,Ataxic,Decreased Feet Clearance,Step-to Gait Factors Limiting Gait Function Factors Limiting Gait Function Decreased Activity Tolerance, Decreased Sensation,Decreased Strength,Difficulty Following Directions,Limited Range of Motion,Pain,Poor Balance,Poor Safety Awareness Comments Gait Comments See mobility comments. Stair Climbing Assessment Evaluation Level of Assist On Stairs Contact Guard Assistance Devices Stair Climbing Assistive Devices Left Railing,Right Railing Technique/Endurance Stair Climbing Direction Ascend and Descend Stair Climbing Technique Step to Step Number of Steps Climbed 3 Comments Stair Climbing Comments See mobility comments. PT-Balance Assessment Sitting Balance and Reactions Static Sitting Balance Ability Good Dynamic Sitting Balance Ability Good Standing Balance and Reactions Static Standing Balance Ability Good Dynamic Standing Balance Ability Fair Device Used FWW M5 PT-IP Objective Assessments Start: 06/10/23 13:10 Freq: NEEDED Status: Discharge Protocol: Document 06/11/23 09:30 AB (Rec: 06/11/23 13:16 AB [id number]) Orientation Orientation/Cognition Level of Alertness Confusional State Orientation Name,Place,Situation Safety Awareness Decreased Safety Awareness Memory Description Short Term Impaired Gross Range of Motion Lower Extremity ROM Assessment Within Functional Limits Strength Lower Extremity Strength Hip 3+/5 Knee 4-/5 Sensation Assessment Sensation Gross Sensation Right UE Impaired Sensation Description Numbness Comments Sensation Comments c/o slight numbness on R hand Muscle Tone Muscle Tone WNL Yes M6 PT-IP Treatment Start: 06/10/23 13:10 Freq: NEEDED Status: Discharge Protocol: Document 06/12/23 13:37 TS (Rec: 06/12/23 13:46 TS [id number]) Physical Therapy Treatment Education Education Provided Precautions,Weight Bearing Status,Post-Op Packet,Safety M7 PT-IP Assessment and Plan Start: 06/10/23 13:10 Freq: NEEDED Status: Discharge Protocol: Document 06/12/23 13:37 TS (Rec: 06/12/23 13:46 TS [id number]) PT Summary Assessment and Plan Potential Rehabilitation Potential Good Summary Impairments Pain,ROM,Strength,Balance, Coordination,Sensation,Tone, Cognition,Bed Mobility, Transfers,Gait,Activity Tolerance Progress Towards Goals Progressing Toward Goals Assessment Summary Pt continues to be SBA/CGA for most mobility. She progressed stairs to x3 with bilateral handrail assist. Education was provided to spouse on proper positioning for stairs and use of gait belt. PT continues to recommend return home with 24 /7 assist and HHPT. Goals Bed Mobility Goal Minimal Assistance Transfer Goal Minimal Assistance,Front Wheeled Walker Gait Goal Minimal Assistance,Front Wheel Walker Gait Distance 50 Other Goals improve bed mobility SBA, transfers SBA using FWW and ambulation using FWW SBA 150 ft up/down 2 steps using walking stick/COP CGA Days to Meet Goals 10 Frequency of Treatment Frequency Of Treatment Twice a Day Treatment Plan Physical Therapy Treatment Plan Bed Mobility Training,Transfer Training,Gait Training, Therapeutic Exercise,Balance Retraining,Post Op Education, Discharge Planning,Hot or Cold Pack,Neuromuscular Re-ed, Coordination Retraining,Manual Therapy Precautions Lumbar Precautions Log Roll,No Twisting,Limit Bending,Lifting Restriction of 10 lbs,Gait Belt above Incisional Area Recommendations To Nursing Amount of Assist Needed 1 Person Assist Discharge Recommendations PT Discharge Recommendations Home with 24/7 Assist Available,Home Health Equipment Needed for Home Before FWW Discharge Transportation Needs at Discharge Private Vehicle,Wheelchair/ Cabulance
--- NOTE | 2023-06-12 13:16 | PC.NURSE ---
IV removed. Discussed s/s of infection, activity, diet and follow up appt. pt had no further questions. Escorted to private vehicle and spouse via wheelchair by patient personal care attendant.
== END 2023-06-12 13:18 | disposition home or self-care (01) | DRG 455 ==
PROVIDERS: Admitting Provider Orthopaedic Surgery Orthopaedic Surgery of the Spine; Referring Provider Orthopaedic Surgery Orthopaedic Surgery of the Spine; Visit Provider Orthopaedic Surgery Orthopaedic Surgery of the Spine
PROC: 0SG10AJ Fusion of 2 or more Lumbar Vertebral Joints with Interbody Fusion Device, Posterior Approach, Anterior Column, Open Approach (ICD-10-PCS; principal; 2023-06-10 07:45)
DX: M48.062 Spinal stenosis, lumbar region with neurogenic claudication (principal); M43.16 Spondylolisthesis, lumbar region; I10 Essential (primary) hypertension; E78.5 Hyperlipidemia, unspecified; K21.9 Gastro-esophageal reflux disease without esophagitis; Z87.891 Personal history of nicotine dependence
CPT/HCPCS: 36415; 72100; 76000; 85014; 85018; 97116; 97162; 97166; 97530; 97535; C1713; C9290; J0330; J0690; J1100; J1170; J2405; J2704; J3010